=== PATIENT | female | born 1965 | race Caucasian/White ===

== ENCOUNTER 2017-04-05 09:48 | Emergency (ER) | payer MEDICAID, OTHER ==
[~2017-04-05] VITALS: Ht 165.1 cm; Wt 48.0 kg
[2017-04-05] MEDS ORDERED: NAPR-681 PO (10:02)
[2017-04-05] MEDS ORDERED: KETOROLAC 15MG/ML VIAL IM ONE (10:15)
[2017-04-05 10:17] VITALS: BP 133/82
== END 2017-04-05 10:34 | disposition home or self-care (01) ==
LOC: ER 10:09
DX: M54.5 Low back pain (principal); R53.1 Weakness; X58.XXXA Exposure to other specified factors, initial encounter; Y93.89 Activity, other specified; Y92.89 Other specified places as the place of occurrence of the external cause; Y99.8 Other external cause status
CPT/HCPCS: 96372; 99283; J1885